=== PATIENT | male | born 1965 | race Caucasian/White ===

== ENCOUNTER 2024-07-26 08:40 | Outpatient (CLI) | payer OTHER ==
[2024-07-26 10:23] LABS: #Basophils 0.03 10x3/uL (0.0-0.2); %Basophils 0.5 % (0.0-1.0); %Eosinophils 1.9 % (0.0-10.0); %Lymphocytes 28.6 % (21.0-51.0); %Monocytes 10.7 % (0.0-10.0); %Neutrophils 58.1 % (42.0-75.0); Hematocrit 45.6 % (42.0-52.0); Hemoglobin 16.3 g/dL (14.0-18.0); Mean Corpuscular HGB CONC 35.7 g/dL (32.0-36.0); Mean Corpuscular Hemoglobin 32.5 pg (27.0-31.0); Mean Corpuscular Volume 90.8 fL (78.0-98.0); Mean Platelet Volume 9.4 fL (7.4-10.4); Platelet Count 289 10x3/uL (130-400); RBC Distribution Width 12.9 % (11.5-14.5); Red Blood Cell (RBC) Count 5.02 mill/uL (4.70-6.10)
[2024-07-26 10:40] LABS: Anion Gap 15 mmol/L (10-20); BUN (Urea Nitrogen) 19 mg/dL (8.4-25.7); Calc. Creatinine Clearance 0 mL/min (70-130); Calcium 9.8 mg/dL (7.8-10.44); Carbon Dioxide 27 mmol/L (22-29); Chloride 102 mmol/L (98-107); Estimated GFR 101; Glucose 106 mg/dL (70-105); Potassium 3.6 mmol/L (3.5-5.1); Sodium 140 mmol/L (136-145)
== END 2024-07-26 08:41 | disposition home or self-care (01) ==
LOC: LABBT 08:40
PROVIDERS: ATTEND Urology
DX: Z01.818 Encounter for other preprocedural examination (principal); N20.1 Calculus of ureter
CPT/HCPCS: 80048; 85025; 87086; 93005; 93010

== ENCOUNTER 2024-08-09 08:30 | Day surgery (SDC) | payer OTHER ==
[2024-07-26 09:03] VITALS: BMI 31.0
[2024-08-09] MEDS ORDERED: Rocuronium Bromide 10 MG/ML (10ML VIAL) ONE (08:58)
[2024-08-09] MEDS ORDERED: PROPOFOL 20 ML ONE (08:58)
[2024-08-09] MEDS ORDERED: Lidocaine 2% PF 5 ML VIAL ONE (08:58)
[2024-08-09] MEDS ORDERED: Iopamidol 15 ML ONE (09:13)
[2024-08-09] MEDS ORDERED: Sodium Chloride 0.9% 100 ML ONE (09:15)
[2024-08-09] MEDS ORDERED: cefTRIAXone (ROCEPHIN) 2 GM VIAL ONE (09:15)
[2024-08-09] MEDS ORDERED: fentaNYL PF 100 MCG/2 ML SYRINGE ONE (09:22)
[2024-08-09] MEDS ORDERED: Midazolam HCl 2 mg/2 ml Vial ONE (09:23)
[2024-08-09] MEDS ORDERED: Ondansetron PF 4 MG/2 ML Vial ONE (09:36)
[2024-08-09] MEDS ORDERED: Dexamethasone 4 mg/ml Vial ONE (09:36)
[2024-08-09] MEDS ORDERED: SUGAMMADEX SODIUM 200 MG/2 ML VIAL ONE (09:40)
[2024-08-09] MEDS ORDERED: PHENYLEPHRINE-NS 100 MCG/ML 10 ML SYRINGE ONE (09:51)
[2024-08-09] MEDS ORDERED: Phenazopyridine HCl 100 MG TAB ONE (10:42)
[2024-08-09] MEDS ORDERED: Loperamide HCl 2 MG CAP PO SCH (12:45)
== END 2024-08-09 13:04 | disposition home or self-care (01) ==
LOC: SDC 08:30
PROVIDERS: ATTEND Urology
PROC: 0TC78ZZ Extirpation of Matter from Left Ureter, Via Natural or Artificial Opening Endoscopic (ICD-10-PCS; principal; 2024-08-09)
PROC: 0T778DZ Dilation of Left Ureter with Intraluminal Device, Via Natural or Artificial Opening Endoscopic (ICD-10-PCS; principal; 2024-08-09)
DX: N20.1 Calculus of ureter (principal); I10 Essential (primary) hypertension; I25.10 Atherosclerotic heart disease of native coronary artery without angina pectoris; E78.00 Pure hypercholesterolemia, unspecified; G47.33 Obstructive sleep apnea (adult) (pediatric); M10.9 Gout, unspecified; Z88.8 Allergy status to other drugs, medicaments and biological substances; Z88.1 Allergy status to other antibiotic agents; Z79.82 Long term (current) use of aspirin; Z79.899 Other long term (current) drug therapy
CPT/HCPCS: 74420; C1769; C1874; J0696; J1100; J2250; J2405; J2704; Q9967